=== PATIENT | female | born 1965 | race Caucasian/White ===

== ENCOUNTER 2023-10-02 08:18 | Outpatient (CLI) | payer BC, SELFPAY ==
--- NOTE | ~2023-10-02 | US_ITS ---
US pelvic complete w TV Ordering provider: Amanda Stanley MD History: . aub . Comparison: None. Technique: Transabdominal and endovaginal ultrasound of the pelvis (Doppler ultrasound interrogation techniques used as needed for this exam.) FINDINGS: CERVIX: Nabothian cysts. UTERUS: Measures 6.5x 5.1x 2.8 cm in length which is within normal limits and is anteverted. Fibroid is seen in the fundus area measuring 2.7 x 2.3 x 2.2 cm. ENDOMETRIUM: Normal in thickness measuring 4 mm. CUL DE SAC: No free fluid. RIGHT OVARY: Normal in size measuring 2x 2.2x 2.3 cm. Hypoechoic area is seen measuring 1.7 x 1.7 x 1 .7 cm most likely a cyst. Normal echotexture. Doppler vascular flow present. LEFT OVARY: Not seen. ADNEXA: Normal. No mass. IMPRESSION: Fibroid uterus. Small right ovarian cyst. Nabothian cysts of the cervix. Otherwise, normal pelvic ult rasound. Reviewed, dictated and finalized at location A. IMPRESSION: Fibroid uterus. Small right ovarian cyst. Nabothian cysts of the cervix. Otherw ise, normal pelvic ultrasound.
== END 2023-10-02 08:19 ==
PROVIDERS: PCP Internal Medicine Geriatric Medicine; Visit Provider Obstetrics & Gynecology Gynecology
DX: N93.8 Other specified abnormal uterine and vaginal bleeding (principal); D25.9 Leiomyoma of uterus, unspecified; N83.201 Unspecified ovarian cyst, right side; N88.8 Other specified noninflammatory disorders of cervix uteri
CPT/HCPCS: 76830; 76856

== ENCOUNTER 2023-11-18 00:09 | Day surgery (SDC) | payer BC, SELFPAY ==
--- NOTE | 2023-11-12 15:36 | SUR.PREOP ---
Report to the Outpatient Waiting Room, entrance under the green pavilion located off [facility], at time 0915 on date 11/18/23. Planned Procedure Time: 1115. Time changes happen often and if your time is changed the preop area will call you the afternoon before. - You and your visitor will be asked to self-screen and do not enter if you have any COVID symptoms. - A mask is optional within the hospital at this time. Patients may have clear liquids (water, carbonated beverages, clear teas, apple juice) until 3 hours prior to surgery with a maximum of 20 ounces. - NO CLEAR LIQUIDS AFTER 0815 - No food from midnight until time of surgery - Infants may have breast milk until 4 hours before surgery, formula 6 hours prior to surgery. - Children will be allowed to drink immediately following surgery. If applicable, please bring a bottle or sippy cup to assist with drinking. Juice, water, soda, and popsicles are readily available. For infants on formula, please bring formula the day of surgery. Pacifiers are allowed. Take the following medications with a SIP of water the morning of surgery: ATENOLOL DO NOT STOP ANY OF YOUR OTHER PRESCRIPTION MEDICATIONS PRIOR TO SURGERY ?EXCEPT THE FOLLOWING Medications to discontinue per physician _SEMAGLUTIDE_ Date to take last dose 11/10/23 (DR WHITFIELD AWARE) Please no make-up, nail slovak, hairspray, perfume, deodorant, or body powder the day of surgery. No jewelry (including any body piercings) or valuables the day of surgery, leave them at home. Please take a shower or bath the night before, or the morning of, surgery with an antibacterial soap. Wear comfortable, loose fitting clothing. Children are encouraged to wear pajamas. - Jewelry must be removed prior to entering the operating room. Rings and piercings that are not removed may be cut off. - The hospital will not accept responsibility for valuables. - Please leave all valuables, including medications, at home the day of surgery. If you are going home after surgery, a licensed driver messenger must drive you home. - NO public transportation without another adult if you receive anesthesia. - We recommend that an adult stay with you for 24 hours following discharge. - We also recommend that you do not drive, make important decision, drink alcoholic beverages, or take any drugs that were not prescribed by your health care provider for at least 24 hours after your discharge time. For Pediatric surgeries, we recommend two adults accompany the child home. Follow any additional instructions given to you from your surgeon. If you or anyone in your household have experienced Covid symptoms in the past week, please notify your surgeon or the nurse liaison at the phone number below for possible testing. Telephone instructions given to MONTY FARLEY and asked if any additional questions and then verbalized understanding. Patient advised to call surgeon office or pre surgery nurse liaison [phone] if any additional questions.
[2023-11-12 15:49] VITALS: BMI 40.4
--- NOTE | 2023-11-18 07:39 | WPDHPUPDATE1 ---
History and Physical Update Update Date/Time: 11/18/23 07:39 History and Physical has been reviewed, including an updated exam of the patient. There are NO changes in the patient's condition. Risks, benefits, and alternatives have been discussed and questions answered. Patient agrees to proceed with procedure.
--- NOTE | 2023-11-18 07:39 | PM.HPGS ---
History of Present Illness History of Present Illness Consent: Risks, benefits, and alternatives have been discussed and questions answered. Patient agrees to proceed with procedure. Chief complaint: post menopausal bleeding Narrative: Elizabeth Ocasio is a 58 year old female with postmenopausal bleeding. Pelvic ultrasound shows a slightly thickened endometrium. It was recommended to undergo D&C hysteroscopy for further evaluation. Risks of infection, bleeding, perforation, and possible pathology are reviewed. Patient voices understanding and agrees to proceed. Review of Systems Review of Systems: not repeated day of surgery; patient states no changes in status [facility] Past Medical History Medical History (Updated 11/18/23 @ 07:42 by Amanda Stanley MD) Depression Elevated cholesterol HTN (hypertension) Migraines Sjogren's disease Surgical History Surgical History (Updated 11/18/23 @ 07:42 by Amanda Stanley MD) History of laparoscopic adjustable gastric banding History of strabismus surgery Hx laparoscopic cholecystectomy Social History Social History Smoking status: Never smoker Living arrangements: with family Spiritual care concerns: No Meds Home Medications and Allergies Home Medications Medication Instructions Recorded Confirmed Type atenolol 50 mg tablet 50 mg PO DAILY 11/12/23 11/12/23 History estradiol 10 mcg vaginal insert 10 mcg vaginal 2XW 11/12/23 11/12/23 History (Imvexxy Maintenance Pack) progesterone micronized 200 mg 400 mg PO HS 11/12/23 11/12/23 History capsule semaglutide (weight loss) 1.7 1.7 mg subcut WEEKLY 11/12/23 11/12/23 History mg/0.75 mL subcutaneous pen injector Allergies Allergy/AdvReac Type Severity Reaction Status Date / Time levofloxacin Allergy Severe Difficulty Verified 11/12/23 15:18 Breathing Exam Const: General: healthy appearing and alert Orientation/consciousness: patient oriented x3 Resp: Effort & Inspection: normal respiratory effort : External Female Exam: normal external appearance Speculum Exam - Vagina: normal appearance of the vagina and normal vaginal discharge Speculum Exam - Cervix: normal appearance of the cervix Bimanual exam- vagina & uterus: uterine size normal and consistency normal Bimanual Exam- Adnexa, other: normal adnexae and No adnexal tenderness Neuro: General: patient oriented x3 Assessment and Plan Assessment and plan (1) Post-menopausal bleeding: Code(s): N95.0 - Postmenopausal bleeding Status: Acute Assessment and Plan: plan to proceed with D&C hysteroscopy
[2023-11-18 09:10] VITALS: BP 127/89; PULSE 95; RESP 16; TEMP 36.1; O2SAT 99
[2023-11-18 09:24] VITALS: BMI 39.6
[2023-11-18] MEDS: LACTATED RINGERS 1,000 ML 30 ML IV CONT (09:30)
[2023-11-18] MEDS: ACETAMINOPHEN 500 MG TABLET 1000 MG PO (09:40)
--- NOTE | 2023-11-18 10:25 | WPDANESEPPF ---
Anes - Initial Pre Proc Eval Procedure: Operation Date: 11/18/23 11:15 Proposed Procedures p Hysteroscopy, Dilation and Curettage - Amanda Stanley MD Date/Time: 11/18/23 10:25 Surgeon: Amanda Stanley MD Pre Op Diagnosis: post menopausal bleeding Patient Data Age: 58 Gender: F Height: 1.65 m Weight: 108 kg Last Vital Signs Temp 96.9 F L 11/18/23 09:10 Pulse 95 11/18/23 09:10 Resp 16 11/18/23 09:10 BP 127/89 11/18/23 09:10 Pulse Ox 99 11/18/23 09:10 O2 Del Method Room Air 11/18/23 09:10 Allergies Allergy/AdvReac Type Severity Reaction Status Date / Time levofloxacin Allergy Severe Swelling Verified 11/18/23 09:22 Home Medications Medication Instructions Recorded Confirmed Type atenolol 50 mg tablet 50 mg PO DAILY 11/12/23 11/18/23 History estradiol 10 mcg vaginal insert 10 mcg vaginal 2XW 11/12/23 11/18/23 History (Imvexxy Maintenance Pack) progesterone micronized 200 mg 400 mg PO HS 11/12/23 11/12/23 History capsule semaglutide (weight loss) 1.7 1.7 mg subcut WEEKLY 11/12/23 11/18/23 History mg/0.75 mL subcutaneous pen injector Patient hx anesthesia problems: none Family hx anesthesia problems: none Results Review: All pre-operative results and documents have been reviewed as part of the pre-operative evaluation. [facility] Past Medical History Medical History Depression Elevated cholesterol HTN (hypertension) Migraines Sjogren's disease Surgical History Surgical History History of laparoscopic adjustable gastric banding History of strabismus surgery Hx laparoscopic cholecystectomy Social History Social History Smoking status: Never smoker Living arrangements: with family Spiritual care concerns: No Anes - Eval Final PreProcedure Day of Procedure 11/18/23 10:25 Patient weight: obese Heart: regular rate and rhythm Lungs: clear to auscultation Airway: Mallampati scale class III and special considerations Neurological: alert and oriented Last oral intake: >/= 8 hours ASA classification: II Emergent: no Anesthetic plan: proceed Anesthesia type and monitoring: general GIVS and standard monitoring Results Review: All pre-operative results and documents have been reviewed as part of the pre-operative evaluation. HTN, ozempic but last dose 11/10/23 without any GI symptoms. Informed Consent: The patient's anesthetic plan and its attendant risks and benefits were discussed with the patient/family/POA. Questions were solicited and answers provided to the satisfaction of the patient/family/POA.
--- NOTE | 2023-11-18 10:55 | W.PM.PROC2 ---
Procedure Note - Detailed Date of Procedure 11/18/23 Pre-op Diagnosis post menopausal bleeding Post-op Diagnosis Same Procedure Performed D&C hysteroscopy excision of endocervical polyp Surgeon Amanda Stanley MD Anesthesia MAC Findings There is a 1cm endocervical polyp prolapsed through the cervical. The cervix is very stenotic. The uterus sounds to 6cm. Endometrium appears grossly normal. Description of Procedure The patient is taken to the operating room and placed under anesthesia in the dorsal lithotomy position. She was prepped and draped in usual sterile fashion. [place] speculum was placed in vagina and the cervix grasped on the anterior lip a tenaculum. There is a large prolapsed polyp noted at the cervical os. The ring forceps are used to grasp the polyp and it is twisted off and removed in its entirety. The uterus was then attempted to be sounded but there was severe internal cervical stenosis. The os Finders and Hegar dilators are used and are unable to enter the cavity. The hysteroscope is placed and attempting to hydro dissect into the cavity was not successful. The os Finders are again used and not successful. The Hegar dilators were used and there was a small give in the upper portion of the stenosis. The hysteroscope was then again placed and able to hydro dissect into the cavity. The cavity appears grossly atrophic. The uterus sounds to 6cm. The OO sharp curette is used to curette the endometrium until a good uterine cry was noted on all areas. Minimal material was obtained consistent with the visual appearance. All instruments are removed. Sponge, needle, and instrument counts are correct per the OR staff. The patient was awakened from anesthesia and taken to recovery in stable condition. Estimated Blood Loss 5 Drains No Packing No Pathology Yes ( Endocervical polyp and endometrial curettings) Complications No immediate complications Condition Stable Disposition PACU
[2023-11-18] MEDS: KETOROLAC 15 MG/ML VIAL (*BKC) IV PUSH (10:58)
[2023-11-18 11:00] VITALS: BP 88/60; PULSE 94; O2SAT 94
[2023-11-18 11:30] VITALS: BP 103/73; PULSE 79
[2023-11-18 12:00] VITALS: BP 107/66; PULSE 80
== END 2023-11-18 12:27 | disposition home or self-care (01) ==
PROVIDERS: PCP Internal Medicine Geriatric Medicine; Visit Provider Obstetrics & Gynecology Gynecology
PROC: 0U5B8ZZ Destruction of Endometrium, Via Natural or Artificial Opening Endoscopic (ICD-10-PCS; CPT 58563; principal; 2023-11-18 11:15)
DX: R93.89 Abnormal findings on diagnostic imaging of other specified body structures (principal); N84.0 Polyp of corpus uteri; N88.2 Stricture and stenosis of cervix uteri; I10 Essential (primary) hypertension; F32.A Depression, unspecified; M35.00 Sjogren syndrome, unspecified; E78.00 Pure hypercholesterolemia, unspecified; E66.9 Obesity, unspecified; Z68.39 Body mass index [BMI] 39.0-39.9, adult; Z79.85 Long-term (current) use of injectable non-insulin antidiabetic drugs; Z98.890 Other specified postprocedural states; Z90.89 Acquired absence of other organs
CPT/HCPCS: 58558; 88305; A9270; J1885; J2250; J3010; J7120